=== PATIENT | female | born 1985 | race Caucasian/White ===

== ENCOUNTER 2021-03-06 09:22 | Emergency (ER) | payer OTHER, SELFPAY ==
--- NOTE | 2021-03-06 09:28 | ED.SKABFB ---
HPI - Skin/Abscess/Foreign Bdy General Chief complaint: Skin/Abscess/Foreign Body Stated complaint: possible perirectal abscess Time Seen by Provider: 03/06/21 09:28 Source: patient and RN notes reviewed History of Present Illness HPI narrative: Patient is a 35-year-old female who presents the urgent care with complaints of a possible rectal abscess. Patient states that it showed up on Wednesday and she has been taking ibuprofen for the pain as well as sitting in a warm Epson salt baths. Patient states that she had one approximately 10 years ago and a possible flareup a couple weeks ago. Patient denies of any fever, chills, nausea, vomiting. No other acute complaints. No acute distress noted. Patient aware of the plan of care. Some parts of this dictation were generated by voice recognition software and may contain typographical and/or grammatical inaccuracies. Related Data Allergies Allergy/AdvReac Type Severity Reaction Status Date / Time No Known Allergies Allergy Verified 03/06/21 09:32 Review of Systems Review of Systems: Narrative: CONSTITUTIONAL: Denies fever, chills, or sweats. EYES: Denies visual changes, redness, or discharge. ENT: Denies rhinorrhea, congestion, sore throat, or otalgia. CARDIOVASCULAR: Denies chest pain, palpitations, or edema. RESPIRATORY: Denies cough or dyspnea. GASTROINTESTINAL: Denies abdominal pain, nausea, vomiting, or diarrhea. GENITOURINARY: Denies dysuria or hematuria. SKIN: Reports of a rectal abscess MUSCULOSKELETAL: Denies back pain, joint pain, or myalgia. NEUROLOGIC: Denies headache, numbness, or weakness. All other systems reviewed are negative, except as documented in HPI. PMFSH Social History Social History Smoking status: Former smoker Alcohol intake: current Comments At the time of my signature, I reviewed and agree with the nursing past medical, surgical, social, and family history. There is no relevant family history pertinent to the patient complaint. Exam Narrative: Exam Narrative: GENERAL: This is a well-nourished, well-developed patient, in no apparent distress. HEAD: normocephalic, atraumatic. EYES: PERRL. Sclera clear/white. Vision is grossly intact. EARS: External ears normal NOSE: External nose normal with no obvious nasal discharge, nares without redness, no rhinorrhea. THROAT: Mucous membranes moist NECK: Neck supple GASTROINTESTINAL: Abdomen soft, non-tender, nondistended. Thrombosed external hemorrhoid noted to the left side with 2 nonthrombosed, nontender external hemorrhoids on the right SKIN: warm, intact with no suspicious lesions or rash, good texture and turgor. NEURO: awake, alert, and oriented to person, place and time. There were no obvious focal neurologic abnormalities. EXTREMITIES: No clubbing, cyanosis, or edema. Course Vital Signs Vital signs: Vital Signs Temperature 98.5 F 03/06/21 09:33 Pulse Rate 69 03/06/21 09:33 Respiratory Rate 16 03/06/21 09:33 Blood Pressure 127/69 03/06/21 09:33 Pulse Oximetry 100 03/06/21 09:33 Temperature 98.5 F 03/06/21 09:33 Pulse Rate 69 03/06/21 09:33 Respiratory Rate 16 03/06/21 09:33 Blood Pressure 127/69 03/06/21 09:33 Pulse Oximetry 100 03/06/21 09:33 Reviewed MDM - Skin/Abscess/Foreign Bdy MDM Narrative Medical decision making narrative: Advised the patient to continue doing warm baths with Epson salts. Continue to use the Tucks as needed. Avoid any heavy lifting or strenuous activity. Follow-up at a outpatient hemorrhoid center for hemorrhoidectomy. Most centers are able to see patients within 1 week of phone calls. Follow-up with your PCP within 2 to 5 days or for worsening symptoms or failure to improve. Differential Diagnosis Differential diagnosis: Likely abscess of skin or subcutaneous tissue, urticaria, allergic reaction to drug and cellulitis Critical Care Time Critical Care Time Critical Care Time: No Discharge Plan Discharge Clinical Impre
[2021-03-06 09:33] VITALS: BP 127/69; PULSE 69; RESP 16; TEMP 36.9; O2SAT 100
--- NOTE | 2021-03-06 10:07 | PC.NURSE ---
0936 physical exam done by provider.
== END 2021-03-06 10:00 | disposition home or self-care (01) ==
PROVIDERS: Emergency Provider Nurse Practitioner Family
DX: K64.5 Perianal venous thrombosis (principal); Z87.891 Personal history of nicotine dependence
CPT/HCPCS: 99203; G0463

== ENCOUNTER 2021-05-19 17:38 | Emergency (ER) | payer OTHER, SELFPAY ==
--- NOTE | 2021-05-19 17:41 | ED.EXTPRO ---
HPI - Extremity Problem General Chief complaint: Skin/Abscess/Foreign Body Stated complaint: lt hand middle finger pos infection Time Seen by Provider: 05/19/21 17:49 Source: patient and RN notes reviewed Mode of arrival: ambulatory Limitations: no limitations History of Present Illness HPI Narrative: 35-year-old female presents concern for a wart on the third digit of her left hand. Reports she has had the wart for approximately 5 months, 2 weeks ago put apple cider vinegar on it causing the middle of the warts turned black. She reports its been black for approximately 2 weeks but over the last several days underneath and around the wart has become red, tender, slightly swollen. She denies any decreased range of motion, sensation in the digit. She denies intervention. MD Complaint: extremity pain Related Data Allergies Allergy/AdvReac Type Severity Reaction Status Date / Time No Known Allergies Allergy Verified 05/19/21 17:47 Review of Systems Review of Systems: Narrative: CONSTITUTIONAL: Denies malaise, chills, sweats, or fever. SKIN: Reports a wart with a dark-colored center, surrounded by swelling, redness, and tenderness MUSCULOSKELETAL: Denies muscle skeletal pain NEUROLOGIC: Denies numbness, weakness All systems reviewed & are unremarkable except as noted in HPI and below PMFSH Past Medical History Medical History Anxiety Surgical History Surgical History History of section S/P breast augmentation S/P dilation and curettage S/P LEEP Family History Family History Mother Diabetes mellitus Depression Sibling Depression Social History Social History Smoking status: Former smoker Alcohol intake: current Comments At time of signature, agree with nursing past medical, surgical, social and family history. There is no relevant family history pertinent to the presenting complaint Exam Narrative: Exam Narrative: GENERAL: Well-appearing, well-nourished, and in no acute distress. HEAD: Normocephalic EYES: PERRLA, conjunctivae clear NECK: Supple. CHEST: Speaks in full sentences. No respiratory distress. HEART: Regular rate and rhythm. Normal and equal peripheral pulses. EXTREMITIES: Third digit of left hand has normal strength and sensation. 5/5 strength with digit flexion, extension. Range of motion normal. No clubbing, cyanosis, or edema noted. No tenderness. Skin intact. Normal digital cascade with flexion of fingers, median, ulnar and radial nerve intact. Normal sensation of each side of finger. Can perform 'okay' sign, 'cross over finger test of index and middle fingers' and 'thumbs up' sign. No scissoring. Normal thumb opposition. Good capillary refill and radial pulse. Distal capillary refill less than 3 seconds. SKIN: Warn, dry, intact, pink. No rash 0.5 cm wart with scabbed center noted above the MCP joint of the third digit of the left hand surrounded by <1 cm of erythema, induration, tenderness NEURO: Alert and oriented x3. PSYCH: Normal mood and affect Course Course Emergency Course: Patient is aware of diagnosis, understands and agrees to treatment plan. Anticipatory guidance given. Patient agrees to follow-up as directed and is aware of reasons to seek care at the emergency department. Portions of this record may have been created with voice recognition software Vital Signs Vital signs: Reviewed. MDM - Extremity (Nontraumatic) MDM Narrative Medical decision making narrative: Exam findings show no acute concerns or changes; patient is non-toxic appearing and is in no distress. Patient is appropriate for outpatient treatment and follow-up. Critical Care Time Critical Care Time Critical Care Time: No Discharge Plan Discharge Clinical Impression:
[2021-05-19 17:43] VITALS: BP 130/84; PULSE 87; RESP 16; TEMP 37.1; O2SAT 99
== END 2021-05-19 18:04 | disposition home or self-care (01) ==
PROVIDERS: Emergency Provider Nurse Practitioner
DX: L08.9 Local infection of the skin and subcutaneous tissue, unspecified (principal); Z87.891 Personal history of nicotine dependence
CPT/HCPCS: 99213; G0463

== ENCOUNTER 2023-08-22 18:14 | Emergency (ER) | payer OTHER, SELFPAY ==
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
[2023-08-22 18:20] VITALS: BP 101/67; PULSE 99; RESP 18; TEMP 36.9; O2SAT 99
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
== END 2023-08-22 18:45 | disposition home or self-care (01) ==
PROVIDERS: Emergency Provider Nurse Practitioner Family; PCP Family Medicine
DX: S63.502A Unspecified sprain of left wrist, initial encounter (principal); W17.89XA Other fall from one level to another, initial encounter; Z87.891 Personal history of nicotine dependence
CPT/HCPCS: 73110; 73130; 99213; G0463

== ENCOUNTER 2025-05-10 10:10 | Emergency (ER) | payer OTHER, SELFPAY ==
--- NOTE | ~2025-05-10 | XR_ITS ---
XR foot RT min 3V Ordering provider: ESTHER Rocha History: . foot pain . Comparison: None. FINDINGS: BONES: No acute fracture or dislocation. JOINT SPACES: Normal. No tarsal coalition. SOFT TISSUES: Normal. IMPRESSION: No acute osseous abnormality of the right foot. Reviewed, dictated and finalized at location A.
--- NOTE | ~2025-05-10 | XR_ITS ---
XR hand RT min 3V Ordering provider: ESTHER Rocha History: . hand pain . Comparison: April 12, 2017 FINDINGS: BONES: No acute fracture or dislocation. JOINT SPACES: Normal. SOFT TISSUES: Normal. IMPRESSION: No acute osseous abnormality right hand. Reviewed, dictated and finalized at location A.
[2025-05-10 10:16] VITALS: BP 100/63; PULSE 82; RESP 20; TEMP 36.9; O2SAT 100
--- OUTSIDE RECORDS SUMMARY | 2025-05-10 10:53 | XMS_ITS | Clinical Summary ---
Author Organization [facility] Address [address] [place] [address] Phone Care Team Providers Care Television Announcer Name Role Phone Franklin Mccarthy MD Primary Care Provider [phone] Allergies No known active allergies Medications sertraline (ZOLOFT) 100 mg tablet Take 1 tablet (100 mg total) by mouth daily 90 tablet 3 12/01/2024 6 Active sertraline (ZOLOFT) 50 mg tablet Take 1 tablet (50 mg total) by mouth daily 90 tablet 4 12/01/2024 6 Active buPROPion XL (WELLBUTRIN XL) 150 mg 24 hr tablet Take 1 tablet (150 mg total) by mouth every morning 90 tablet 3 12/01/2024 6 Active Active Problems Problem Noted Date Diagnosed Date Physical exam, annual 12/01/2024 Assessment & Plan (12/01/2024 8:26 AM POWER LINEMAN TECHNICIAN): Preventive exam; reviewed recommended preventive screenings and vaccinations. Encourage annual flu vaccine. Wear sunscreen/protective clothing when outdoors. -mammogram ordered -current on pap, repeat 2027 BMI 29.0-29.9,adult 12/01/2024 Assessment & Plan (12/01/2024 8:32 AM POWER LINEMAN TECHNICIAN): Weight has increased by 30 lb in the past 3 years. Patient attributes this to change in work environment, she now has a desk job. She also quit smoking about 2-1/2 years ago. Recommended monitoring carb intake, limiting portion sizes as well as increasing physical activity. Subclinical hypothyroidism 12/01/2024 Assessment & Plan (12/01/2024 8:33 AM POWER LINEMAN TECHNICIAN): Normal T4 and T3. Patient reports she does take biotin supplement. Discussed how this may impact thyroid studies. Will continue to monitor, plan to repeat thyroid function testing in 6-12 months and will hold biotin in supplements for 1 week prior to lab work. Lab Results Component Value Date TSH 4.98 (H) 11/10/2024 TSH 2.84 07/28/2023 TSH 2.53 07/08/2021 Tobacco use 12/10/2021 Anxiety 08/25/2018 Assessment & Plan (12/01/2024 8:31 AM POWER LINEMAN TECHNICIAN): Notes increase in anxiety when she misses doses of sertraline, you would benefit from increase dosage. Will Increase sertraline to 150 mg daily and monitor response. Continue bupropion. Where to reach out with any questions or concerns. Epigastric pain 01/07/2018 Immunizations Immunization Administration Dates Next Due Influenza, Quadrivalent, Amna l Culture-based MDCK, Preservative Free, Antibiotic Free, Intramuscular 08/17/2023 Influenza, Quadrivalent, Spl it, Intramuscular 08/13/2018,08/06/2017,08/19/2016 Influenza, Trivalent, IM (MDV) 08/23/2020 Influenza, Trivalent, Preser vative Free, Intramuscular 08/29/2024 Influenza, Unspecified 08/17/2023,2022(Deferred: Patient Refused),11/22/2022(Deferred: Patient Refused),08/26/2021,09/22/2020, 019 Moderna SARS-CoV-2 Monovalen t Vaccination (12+ YRS) 04/12/2021,03/15/2021 Tdap 03/31/2023 Surgical History Surgery Date Site/Laterality Comments COSMETIC SURGERY 2018 SECTION 09-10-2014 AUGMENTATION MAMMAPLASTY 11/22/2019 - 11/21/2020 Bilater al Medical History Medical History Date Comments Anxiety Depression Migraines Family History Medical History Relation Name Comments Anxiety disorder Mother Sol Depression Mother Sol Diabetes Mother Sol Breast cancer Neg Hx Ovarian cancer Neg Hx Thyroid cancer Neg Hx Relation Name Status Comments Father Alive Mother Sol Alive Social History Tobacco Use Types Packs/Day Years Used Date Smoking Tobacco: Former Cigarettes 0.5 3 Q uit: 12/23/2022 Smokeless Tobacco: Never Tobacco Cessation:Counseling Given: Not Answered Comments:1 ppd PHQ-2 Answer Date Recorded PHQ-2 Total Score (If total score is 3 or more points, staff should administer the PHQ-9) 0 12/01/2024 Comments No Sex and Gender Information Value Date Recorded Sex Assigned at Not on file Legal Sex Female 5:44 PM POWER LINEMAN TECHNICIAN Gender Identity Female 09/24/2021 6:45 PM CDT Sexual Orientation Straight 09/24/2021 6: 45 PM CDT Obstetrics History Para Term AB IAB SAB Ectopic Multiple Livin g Live Births 1 1 1 Date Outcome GA Total Labor Labor//3rd Weight Sex Type Anes PTL Noa A1 A5 Name Clin Term Last Filed Vital Signs Vital Sign Reading Time Taken Comments Blood Pressure 98/62 12/01/2024 7:54 AM POWER LINEMAN TECHNICIAN Pulse 85 12/01/2024 7:54 AM POWER LINEMAN TECHNICIAN Temperature 36.6 C (97.9 F) 12/01/2024 7:54 AM POWER LINEMAN TECHNICIAN Respiratory Rate 16 12/01/2024 7:54 AM POWER LINEMAN TECHNICIAN Oxygen Saturation 99% 12/01/2024 7:54 AM POWER LINEMAN TECHNICIAN Inhaled Oxygen Concentration - - Weight 68 kg (150 lb) 12/01/2024 7:54 AM POWER LINEMAN TECHNICIAN Height 152.4 cm (5') 12/01/2024 7:54 AM POWER LINEMAN TECHNICIAN Body Mass Index 29.29 12/01/2024 7:54 AM POWER LINEMAN TECHNICIAN Plan of Treatment Health Maintenance Due Date Last Done Comments Cervical Cancer Screening 1984 Hepatitis C Screening 1984 Varicella Vaccines (1 of 2 - 13+ 2-dose series) 1997 Hepatitis B Screening 2002 Covid-19 Vaccine ( season) 2024 11/29/2021, 04/12/2021, 03/15/2021 Depression Screening 12/01/2025 12/01/2024, 07/27/2023, 12/10/2021, Additional history exists Regular Well Visit/Exam 18-64 12/01/2025 12/01/2024 Breast Cancer Screening-Mammogram 01/20/2026 01/20/2025 DTaP/Tdap/Td Vaccine (2 - Td or Tdap) 03/31/2033 03/31/2023 Influenza Vaccine Completed 08/29/2024, , 08/17/2023, Additional history exists HPV Vaccines Aged Out No longer eligi ble based on patient's age to complete this topic Pneumococcal vaccine <65 Aged Out No longer eligible based on patient's age to complete this topic Procedures Procedure Name Priority Date/Time Associated Diagnosis Comments SCREENING MAMMOGRAM BILATERAL W KANA W IMPLANTS Schedule Routine, Read Routine (OP Routine) 01/20/2025 10:37 AM POWER LINEMAN TECHNICIAN Encounter for screening mammogram for breast cancer from Last 3 Months or Most Recently Relevant to Health Maintenance Results * (ABNORMAL) Screening Mammogram Bilateral W Kana W Implants (01/20/2025 10:37 AM POWER LINEMAN TECHNICIAN) Anatomical Region Laterality Modality Breast Bilateral Mammography 01/22/2025 8:24 PM POWER LINEMAN TECHNICIAN Impressions 01/22/2025 8:24 PM POWER LINEMAN TECHNICIAN 2 questionable asymmetries on the left MLO implant displaced view only. Additional mammographic and possibly sonographic imaging is recommended. FINAL ASSESSMENT: BI-RADS Category 0: Incomplete - Need Additional Imaging Evaluation. Electronically signed by: Anisa Landaverde M.D. Narrative 01/22/2025 8:24 PM POWER LINEMAN TECHNICIAN EXAMINATION: BILATERAL SCREENING MAMMOGRAM COMPARISON: None TECHNIQUE: Full-field 2D and digital breast tomosynthesis (DBT) images were obtained. CAD was utilized. BREAST PARENCHYMAL COMPOSITION: The breasts are heterogenously dense, which may obscure small masses. FINDINGS: There are bilateral retropectoral silicone implants. The presence of implants limits the sensitivity of mammography. There are 2 questionable asymmetries seen on the left MLO implant displaced view. These could just be areas of dense tissue or scarring from the surgery. No suspicious calcifications are seen. There is no unexplained architectural distortion. There is no skin thickening seen. There are no mammographically abnormal lymph nodes seen in the axillae or elsewhere. us Marilu Starr [facility] IMG MAMMO PROCEDURES Final Result from Last 3 Months or Most Recently Relevant to Health Maintenance Insurance [address] [place] [address] [place] [id number] Care Teams Television Announcer Relationship Specialty Start Date End Date [place] [address] PCP - General Family Medicine 09/17/21
--- OUTSIDE RECORDS SUMMARY | 2025-05-10 10:53 | XMS_ITS | Clinical Summary ---
Author Organization [facility] Address [address] [place] [address] Phone Care Team Providers Care Human Resource Intern Name Role Phone Franklin Mccarthy MD Primary Care Provider [phone] Allergies No known active allergies Medications propranolol (INDERAL) 10 MG TabletIndicatio ns:Anxiety 1-2 tablets up to 3 x a day as needed for anxiety 90 Tab 3 10/20/2018 Active buPROPion (WELLBUTRIN) 300 MG TABLET SR 24 HR XL tabletIndicatio ns:Anxiety Take 1 Tab by mouth every morning. 90 Tab 01/13/2019 Active sertraline (ZOLOFT) 100 MG TabletIndicatio ns:Anxiety Take 2 Tabs by mouth nightly. 180 Tab 02/08/2019 Active Active Problems Problem Noted Date Diagnosed Date Anxiety 08/25/2018 Epigastric pain 01/07/2018 Immunizations Immunization Administration Dates Next Due Influenza Vaccine greater than 3 yrs 08/23/2020 Influenza, Injectable, Quadrivalent 08/13/2018,0 08/06/2017,08/19/2016 Family History Medical History Relation Name Comments No Known Problems Father No Known Problems Mother Relation Name Status Comments Father Alive Mother Alive Social History Tobacco Use Types Packs/Day Years Used Date Smoking Tobacco: Former Smokeless Tobacco: Never Alcohol Use Standard Drinks/Week Comments No 0 (1 standard drink = 0.6 oz pur e alcohol) PHQ-2 Answer Date Recorded PHQ-2 Score 0 07/26/2019 Comments No Sex and Gender Information Value Date Recorded Sex Assigned at Not on file Legal Sex Female 7:14 PM CDT Gender Identity Not on file Sexual Orientation Not on file Last Filed Vital Signs Vital Sign Reading Time Taken Comments Blood Pressure 92/58 01/13/2019 10:51 AM MARINE FITTER Pulse 69 01/13/2019 10:51 AM MARINE FITTER Temperature 36.8 C (98.2 F) 01/13/2019 10:51 AM MARINE FITTER Respiratory Rate 20 01/13/2019 10:51 AM MARINE FITTER Oxygen Saturation 98% 01/13/2019 10:51 AM MARINE FITTER Inhaled Oxygen Concentration - - Weight 56.9 kg (125 lb 6.4 oz) 01/13/2019 10:51 AM MARINE FITTER Height 152.4 cm (5') 01/13/2019 10:51 AM MARINE FITTER Body Mass Index 24.49 01/13/2019 10:51 AM MARINE FITTER Plan of Treatment Health Maintenance Due Date Last Done Comments Hepatitis C Virus (HCV) Screening 1984 TdaP Immunization 1984 Human Papillomavirus (HPV) Immunization (1 - 3-dose series) 1999 Hepatitis B Immunization (1 of 3 - 19+ 3-dose series) 2003 SARS-COV-2 Immunization ( - season) 2024 11/29/2021, 04/12/2021, 03/15/2021 Influenza Immunization (Season Ended) 2025 08/26/2021, 09/22/2020, 08/23/2020, Additional history exists Respiratory Syncytial Virus (RSV) Immunization (Adult) (1 - 1-dose 75+ series) 2059 Cervical Cancer Screening (CCS) Discontinued Pap Smear Discontinued 04/22/2017 HPV/Cotest Discontinued Meningococcal Immunization (ACWY) Aged Out No longer eligible based on patient's age to complete this topic Pneumococcal Immunization Combined Aged Out No longer eligible based on patient's age to complete this topic Rotavirus Immunization Aged Out No lo nger eligible based on patient's age to complete this topic Care Teams Human Resource Intern Relationship Specialty Start Date End Date Franklin Mccarthy MD [address] [place] [address] PCP - General Internal Medicine 12/25/21
--- OUTSIDE RECORDS SUMMARY | 2025-05-10 10:53 | XMS_ITS | Encounter Summary ---
Author Organization [facility] Address [address] [place] [address] Care Team Providers Care Candy Department Manager Name Role Phone Unavailable Primary Care Provider Unavailabl e Encounter Details Date Type Department Care Team (Late st Contact Info) Description 06/15/2020 Telephone [facility] [address], [address] [place] [address] Provider, [address] Social History Tobacco Use Types Packs/Day Years Used Date Smoking Tobacco: Never Assessed Comments Unknown Sex and Gender Information Value Date Recorded Sex Assigned at Not on file Legal Sex Female 10:29 AM CDT Gender Identity Not on file Sexual Orientation Not on file documented as of this encounter Miscellaneous Notes * Telephone Encounter - Ana Cline APRN-CNP - 06/15/2020 1:37 PM CDT I will call the patient. Thanks * Telephone Encounter - Ana Cline APRN-CNP - 06/15/2020 1:20 PM CDT They can look at the ID website for testing closer to their home. I only have access to [facility] facilities to give the information to patients. Also [facility] does own the [facility] clinics so they could gothere. * Telephone Encounter - Maricarmen Briseno - 06/15/2020 10:44 AM CDT Who is calling? If caller is anyone other than listed above, where are they calling from? CELL PHONE What is the reason for call? Did virtural visit need covid testing wants to know if there is somewhere closer to go to. Expected Response from the Clinic? Call back documented in this encounter Plan of Treatment Not on file documented as of this encounter Visit Diagnoses Not on filedocumented in this encounter
--- OUTSIDE RECORDS SUMMARY | 2025-05-10 10:53 | XMS_ITS | Clinical Summary ---
Author Organization [facility] Address [address] [place] [address] Care Team Providers Care Community Relations Manager Name Role Phone Unavailable Primary Care Provider Unavailabl e Source Comments [facility],non-owned Affiliates and Associated Physician Practices is amultiple site organization consisting of ambulatory clinics and hospital sitesin [place], [place], [place] and [place]. This disclosure is being madepursuant to the Care Everywhere program and may not contain all informatio navailable regarding this patient. Last updated 18.[facility] Social History Tobacco Use Types Packs/Day Years Used Date Smoking Tobacco: Never Assessed Comments Unknown Sex and Gender Information Value Date Recorded Sex Assigned at Not on file Legal Sex Female 10:29 AM CDT Gender Identity Not on file Sexual Orientation Not on file Plan of Treatment Health Maintenance Due Date Last Done Comments LIPID TESTING 1984 MAMMOGRAM 1984 HIV SCREENING 1999 HEPATITIS C SCREENING 08/28/2002 DTAP/TDAP/TD VACCINES (1 - Tdap) 2003 HEPATITIS B VACCINE (1 of 3 - 19+ 3-dose series) 2003 COVID-19 VACCINE ( - 2023-2 5 season) 2024 DEPRESSION SCREENING 11/22/2024 INFLUENZA VACCINE (Season Ended) 2025 ZOSTER VACCINE (1 of 2) 2034 HIB VACCINE Aged Out No longer eligi ble based on patient's age to complete this topic HPV VACCINE Aged Out No longer eligi ble based on patient's age to complete this topic MENINGOCOCCAL (Group B) VACC INE SHARED DECISION-MAKING Aged Out No longer eligibl e based on patient's age to complete this topic MENINGOCOCCAL GROUPS A/C/Y/W VACCINE Aged Out No longer eligible b ased on patient's age to complete this topic PNEUMOCOCCAL VACCINE Aged Out No long er eligible based on patient's age to complete this topic
--- OUTSIDE RECORDS SUMMARY | 2025-05-10 10:53 | XMS_ITS | Referral Summary ---
Author Organization [facility] Address [address] [place] [address] Phone Care Team Providers Care Rod Straightener Name Role Phone Franklin Mccarthy MD Primary Care Provider [phone] Allergies No known active allergies Medications sertraline [...] 12/01/2024 Assessment & Plan (12/01/2024 8:26 AM ACCOUNTING METHODS ANALYST): Preventive exam; reviewed recommended preventive screenings and vaccinations. Encourage annual flu vaccine. Wear sunscreen/protective clothing when outdoors. -mammogram ordered -current on pap, repeat 2027 BMI 29.0-29.9,adult 12/01/2024 Assessment & Plan (12/01/2024 8:32 AM ACCOUNTING METHODS ANALYST): Weight has increased by 30 lb in the past 3 years. Patient attributes this to change in work environment, she now has a desk job. She also quit smoking about 2-1/2 years ago. Recommended monitoring carb intake, limiting portion sizes as well as increasing physical activity. Subclinical hypothyroidism 12/01/2024 Assessment & Plan (12/01/2024 8:33 AM ACCOUNTING METHODS ANALYST): Normal T4 and T3. Patient reports she [...] 08/25/2018 Assessment & Plan (12/01/2024 8:31 AM ACCOUNTING METHODS ANALYST): Notes increase in anxiety when she misses [...] t Vaccination (12+ YRS) 04/12/2021,03/15/2021 Tdap 03/31/2023 Social History Tobacco Use Types Packs/Day Years [...] on file Legal Sex Female 5:44 PM ACCOUNTING METHODS ANALYST Gender Identity Female 09/24/2021 6:45 PM CDT Sexual Orientation Straight 09/24/2021 6: 45 PM CDT Last Filed Vital Signs Vital Sign Reading Time Taken Comments Blood Pressure 98/62 12/01/2024 7:54 AM ACCOUNTING METHODS ANALYST Pulse 85 12/01/2024 7:54 AM ACCOUNTING METHODS ANALYST Temperature 36.6 C (97.9 F) 12/01/2024 7:54 AM ACCOUNTING METHODS ANALYST Respiratory Rate 16 12/01/2024 7:54 AM ACCOUNTING METHODS ANALYST Oxygen Saturation 99% 12/01/2024 7:54 AM ACCOUNTING METHODS ANALYST Inhaled Oxygen Concentration - - Weight 68 kg (150 lb) 12/01/2024 7:54 AM ACCOUNTING METHODS ANALYST Height 152.4 cm (5') 12/01/2024 7:54 AM ACCOUNTING METHODS ANALYST Body Mass Index 29.29 12/01/2024 7:54 AM ACCOUNTING METHODS ANALYST Plan of Treatment Not on file Procedures Procedure Name Priority Date/Time Associated Diagnosis Comments SCREENING MAMMOGRAM BILATERAL W KANA W IMPLANTS Schedule Routine, Read Routine (OP Routine) 01/20/2025 10:37 AM ACCOUNTING METHODS ANALYST Encounter for screening mammogram for breast cancer from Last 3 Months or Most Recently Relevant to Health Maintenance Results * (ABNORMAL) Screening Mammogram Bilateral W Kana W Implants (01/20/2025 10:37 AM ACCOUNTING METHODS ANALYST) Anatomical Region Laterality Modality Breast Bilateral Mammography 01/22/2025 8:24 PM ACCOUNTING METHODS ANALYST Impressions 01/22/2025 8:24 PM ACCOUNTING METHODS ANALYST 2 questionable asymmetries on the left MLO implant displaced view only. Additional mammographic and possibly sonographic imaging is recommended. FINAL ASSESSMENT: BI-RADS Category 0: Incomplete - Need Additional Imaging Evaluation. Electronically signed by: Anisa Landaverde M.D. Narrative 01/22/2025 8:24 PM ACCOUNTING METHODS ANALYST EXAMINATION: BILATERAL SCREENING MAMMOGRAM COMPARISON: None TECHNIQUE: [...] nodes seen in the axillae or elsewhere. Marilu Starr NP IMG MAMMO PROCEDURES Final Result from Last 3 Months or Most Recently Relevant to Health Maintenance [place] [place] [address] [place] [address] Care Teams Rod Straightener Relationship Specialty Start Date End Date [place] [address] PCP - General Family Medicine 09/17/21
--- NOTE | 2025-05-10 11:04 | ED.GENADULT ---
HPI - General Adult General Chief complaint: Extremity Injury, Upper Stated complaint: Right wrist and foot injury Source: patient Mode of arrival: ambulatory Limitations: no limitations History of Present Illness HPI narrative: Pt presents for evaluation of right hand and foot pain since last night. She was playing softball and collided with another player. She is not sure what actually occurred when they collided but she now has pain and swelling in the right hand and foot. She denies pain at rest in the hand or foot. She rates the pain in her hand a 6/10 severity with movement. She states pain in right foot is severe with weightbearing but she does not provide me with a numerical rating. She took 600 mg of ibuprofen for symptoms. She denies paresthesias. Related Data Home Medications ?Medication ?Instructions ?Recorded ?Confirmed ?Last Taken ?Type bupropion HCl 150 mg 24 hr tablet, 150 mg PO DAILY 08/22/23 08/22/23 Unknown History extended release sertraline 100 mg tablet 100 mg PO DAILY 08/22/23 08/22/23 Unknown History Allergies Allergy/AdvReac Type Severity Reaction Status Date / Time No Known Allergies Allergy Verified 05/10/25 10:27 Review of Systems Review of Systems: CONSTITUTIONAL: Denies fever, chills, or sweats. EYES: Denies visual changes, redness, or discharge. ENT: Denies rhinorrhea, congestion, sore throat, or otalgia. CARDIOVASCULAR: Denies chest pain, palpitations, or edema. RESPIRATORY: Denies cough or dyspnea. GASTROINTESTINAL: Denies abdominal pain, nausea, vomiting, or diarrhea. GENITOURINARY: Denies dysuria or hematuria. SKIN: Reports bruising to the right hand and right foot MUSCULOSKELETAL: Reports pain in the right hand and right foot. Denies loss of range of motion. NEUROLOGIC: Denies headache, numbness, dizziness, or weakness. PSYCHIATRIC: Denies anxiety or depression. [facility] Past Medical History Medical History Anxiety Surgical History Surgical History S/P breast augmentation S/P LEEP S/P dilation and curettage History of section Family History Family History Mother Diabetes mellitus Depression Sibling Depression Social History Social History Smoking status: Former smoker Alcohol intake: current Lack of Transportation: No Lack of Food: Never True Current Housing: I Do Not Have Housing Concerned About Future Housing: No Difficulty Paying Gas/Electric Bills: No Difficulty Paying for Meds: No Currently Unemployed: No Education: Associate Degree Difficulty w/ Childcare or Family Care: No Exam Narrative: GENERAL: Well-appearing, well-nourished, and in no acute distress. HEAD: Normocephalic, atraumatic. EYES: PERRLA and EOMI. ENT: Nares clear, no rhinorrhea or epistaxis. Mucous membranes moist. Oropharynx without tonsillar hypertrophy exudate or other lesions. Bilateral TMs pearly lyn nonbulging NECK: Supple. No adenopathy or masses. No carotid bruits or JVD CHEST: Clear to auscultation. No respiratory distress. No wheezes rales or rhonchi HEART: Regular rate and rhythm. No murmur heard. Normal peripheral pulses. ABDOMEN: Soft, nontender, nondistended, normal active bowel sounds. EXTREMITIES: There is tenderness over the 2nd and 3rd metacarpals of the right hand. 4/5 hand chief medical technologist strength on the right. 5/5 hand chief medical technologist strength on the left. Full range of motion of all digits of the right hand. There is tenderness noted to dorsal aspect of right foot overlying the 2nd-4th metatarsals SKIN: There is ecchymosis noted to the dorsal aspect of the right foot and dorsal aspect of the right hand. NEURO: No focal deficits. Alert and oriented x3. PSYCH: Normal mood and affect. Course Course Emergency Course: This is a 39-year-old female who presented for evaluation of right hand and foot pain. X-rays negative for fracture. I offered patient Ludwin wrap, postop shoe and crutches. She declined. She also declined a prescription for analgesics. Recommend RICE therapy and NSAIDs for pain. Follow up with primary provider. Go to the ER for worsening symptoms. Pt in agreement with plan of care. Level of Care: Express Care Visit Vital Signs Vital signs: Vital Signs Temperature 36.9 C 05/10/25 10:16 Pulse Rate 82 05/10/25 10:16 Respiratory Rate 20 05/10/25 10:16 Blood Pressure 100/63 05/10/25 10:16 Pulse Oximetry 100 05/10/25 10:16 Oxygen Delivery Room Air 05/10/25 10:16 Temperature 36.9 C 05/10/25 10:16 Pulse Rate 82 05/10/25 10:16 Respiratory Rate 20 05/10/25 10:16 Blood Pressure 100/63 05/10/25 10:16 Pulse Oximetry 100 05/10/25 10:16 Oxygen Delivery Room Air 05/10/25 10:16 Medical Decision Making Vital Signs Vital Signs: Vital Signs Temperature 36.9 C 05/10/25 10:16 Pulse Rate 82 05/10/25 10:16 Respiratory Rate 20 05/10/25 10:16 Blood Pressure 100/63 05/10/25 10:16 Pulse Oximetry 100 05/10/25 10:16 Oxygen Delivery Room Air 05/10/25 10:16 Temperature 36.9 C 05/10/25 10:16 Pulse Rate 82 05/10/25 10:16 Respiratory Rate 05/10/25 10:16 Blood Pressure 100/63 05/10/25 10:16 Pulse Oximetry 100 05/10/25 10:16 Oxygen Delivery Room Air 05/10/25 10:16 Imaging Data Radiologist's impression: XR hand RT min 3V Ordering provider: ESTHER Rocha History: . hand pain . Comparison: April 12, 2017 FINDINGS: BONES: No acute fracture or dislocation. JOINT SPACES: Normal. SOFT TISSUES: Normal. IMPRESSION: No acute osseous abnormality right hand. XR foot RT min 3V Ordering provider: ESTHER Rocha History: . foot pain . Comparison: None. FINDINGS: BONES: No acute fracture or dislocation. JOINT SPACES: Normal. No tarsal coalition. SOFT TISSUES: Normal. IMPRESSION: No acute osseous abnormality of the right foot. Discharge Plan Discharge Clinical Impression: Contusion of hand, right, Contusion of foot, right Patient Disposition: Home Condition: Stable Instructions: Antibiotic Form, Contusion in Adults (ED) Patient Language: Kinyarwanda Prescriptions: No Action sertraline 100 mg tablet 100 mg PO DAILY bupropion HCl 150 mg tablet extended release 24 hr 150 mg PO DAILY Follow-up/Referrals: Harms,Franklin Pereira M.D. [Primary Care Provider] - Time of Disposition: 11:32
== END 2025-05-10 11:35 | disposition home or self-care (01) ==
PROVIDERS: Emergency Provider Nurse Practitioner; PCP Family Medicine
DX: S60.221A Contusion of right hand, initial encounter (principal); S90.31XA Contusion of right foot, initial encounter; W51.XXXA Accidental striking against or bumped into by another person, initial encounter; Y93.64 Activity, baseball; F41.9 Anxiety disorder, unspecified; Z87.891 Personal history of nicotine dependence
CPT/HCPCS: 73130; 73630; 99214; G0463